=== PATIENT | male | born 1985 | race Two or more races ===

== ENCOUNTER 2018-02-23 16:15 | Inpatient (IN) ==
[2018-02-23] MEDS ORDERED: Bisacodyl 10 MG Supp RECTAL PRN (17:48)
[2018-02-23] MEDS ORDERED: Aluminum/Magnesium/Simethacone Susp 30 ML UDC PO PRN (17:48)
[2018-02-23] MEDS: Senna/Docusate Sodium 8.6/50 MG Tablet PO SCH (22:13)
[2018-02-24] MEDS: Senna/Docusate Sodium 8.6/50 MG Tablet PO SCH ×2 (08:42→20:27)
[2018-02-24 08:50] LABS: Anion Gap 6 meq/L (5-15); Blood Urea Nitrogen 14 mg/dL (7-18); Calcium 8.5 mg/dL (8.5-10.1); Carbon Dioxide 27.6 meq/L (21.0-32.0); Chloride 106 meq/L (98-107); Cholesterol 134 mg/dL (120-200); Glomerular Filtration Rate Greater Than 89 mL/min (>89); Glucose,Random 95 mg/dL (74-106); Potassium 3.7 meq/L (3.5-5.1); Sodium 140 meq/L (136-145)
[2018-02-24 08:53] LABS: Chol/HDL Ratio 3.58 Ratio; HDL Cholesterol 37.4 mg/dL (40.0-60.0); LDL Cholesterol,Calculated 74 mg/dL (0-99); Triglycerides 112 mg/dL (42-150)
[2018-02-24 12:33] LABS: Hemoglobin A1c 4.8 % (4.3-6.0)
--- NOTE | 2018-02-24 14:32 | P.HPPSY ---
Provisional Diagnosis Admission Date: February 23, 2018 17:08 [place] I.: Bipolar D/O, MRE mixed with psychotic features [place] II.: def Competence Certification of Person's Competence To Provide Express and Informed Consent I have personally examined Alessandro Wisdom, a person being served at [facility] on, February 24, 2018 1432. Express and informed consent means consent voluntarily given in writing, by a competent person, after sufficient explanation and disclosure of the subject matter involved to enable the person to make a knowing and willful decision without any element of force, fraud, deceit, duress, or other form of constraint or coercion. This person is 18 years of age or older, is not now known to be incompetent to consent to treatment with a guardian advocate, and does not have a health care surrogate or proxy currently making medical treatment decisions. I have found this person to be one of the following: [x] Competent to provide express and informed consent, as defined above, for voluntary admission to this facility and is competent to provide express and informed consent for treatment. He/she has the consistent capacity to make well reasoned, willful, and knowing decisions concerning his or her medical or mental health treatment. The person fully and consistently understands the purpose of the admission for examination/placement and is fully capable of personally exercising all rights assured under [place] [] Incompetent to provide express and informed consent to voluntary admission, and this is incompetent to provide express and informed consent to treatment. The person must be transferred to involuntary status and a petition for a guardian advocate filed with the Circuit Court. [] Refusing to provide express and informed consent to voluntary admission but is competent to provide express and informed consent for treatment. The person must be discharged or transferred to involuntary status. Form shall be completed within 24 hours of a person's arrival at the receiving facility and filed in the clinical record of each person: 1. Admitted on a voluntary basis 2. Permitted to provide express and informed consent to his/her own treatment 3. Allowed to transfer from involuntary to voluntary status 4. Prior to permitting a person to consent to his or her own treatment after having been previously found incompetent to consent to treatment. History of Present Illness Capacity: Has capacity Chief Complaint: "Depression and anxiety" History of Present Illness: Pt is a 32 YOHM who was admitted to [facility] under a BA due to depression and psychosis. He was transferred to [facility] from [facility] after he presented to ED c/o of depression and AH and fears that he would hurt others if voices continued. Pt was seen with RN and interview was conducted using Romansh site interpreter. Pt states that he has been feeling increasingly depressed and anxious for several days. He c/o of very poor sleep, racing thoughts, confusion, angry and AH. He states that he has a hx of previous psychiatric hospitalization x1 years ago. He states that he has been experiencing increasing AH that sound like multiple voices or static. He states that he does not want to harm himself or others, but he is afraid because he has been having severe anger and he is afraid he will hurt someone or destroy property. Pt reports that 2 months ago he went to ED c/o of anxiety and mood and was given prescriptions for klonopin and alprazolam. He has not had these medications in over a month. He reports that he has been smoking cigarettes and using cannabis on occasion. He states that he wants treatment and is willing to stay in hospital. Staff report that pt has been intrusive and impulsive. He was moved to a camera room due to hypersexual behavior (propositioning for threesomes) He reports hx of multiple episodes of depression and endorses past symptoms of hypomania. Past psychiatric Hx: one previous psychiatric hospitalization several years ago. Past dx of depression and anxiety. No previous suicide attempts. No hx of violent behavior. Past Psychiatric meds: clonazepam-2 months ago xanax-2 months ago SH: Pt reports that he has lived in [place] for 1 year and 7 months. Previously he was living in [place]. He reports that he has family local and in [place]. He has a 4th grade education. 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 He reports that he was living in a motel after breaking up with his child's mother and is now homeless. He reports that he does have family members living locally. No pending legal charges or history of incarceration. - Inpatient Certification I certify that the inpatient services were ordered in accordance with Medicare regulations governing the order. This includes certification that hospital inpatient services are reasonable and necessary and in the case of services not specified as inpatient-only under 42 CFR 419.22(n), that they are appropriately provided as inpatient services in accordance to with the 2-midnight benchmark under 43 CFR 412.3(e) I certify that inpatient psychiatric hospital services are medically necessary. Evaluation and treatment and/or diagnostic testing are expected to improve the patient's condition. The patient needs on a daily basis, active treatment furnished directly by or requiring the supervision of inpatient psychiatric facility personnel. Estimated Total Length of Stay (Days): 7 Plans for Post Hospital Care: Not yet determined Review of Systems Psychiatric: Reports abnormal sleep pattern, Reports anxiety, Reports depression , Reports hearing things others do not hear, Reports mood swings, Reports panic attacks, Reports thoughts of hurting/killing others PMFSH - Medical / Surgical Hx Neg / Unobtainable Medical Problems Denied: Yes Surgical History: No Previous Surgery - Medical History Medical History: Medical History (Last Updated 02/24/18 @ 14:51 by Alina Hannah MD) Anxiety Depression - Family History Family History: Family History (Last Updated 02/24/18 @ 14:51 by Alina Hannah MD) Other No pertinent family history - Social History I have reviewed the patient's Social History: Yes - Tobacco History Tobacco Use In Past 30 Days: Yes Smoking Status: Current some day smoker Tobacco Type: Cigarettes - Alcohol History How Often Do You Have a Drink Containing Alcohol: Unable to Obtain - Substance Use History Substance History: Active Abuse - Substance Use Type Marijuana Status: Active Route Used: Inhalation Reason for Use: Calm Down - Immunization History Tetanus Immunization: Unable to Assess Hx Influenza Vaccine This Season: Unable to Assess Quality Measures - Psychiatric History Psychological trauma history: none Violence risk to others in the last 6 months: none Violence risk to self in the last 6 months: none - Substance Abuse History Drug or alcohol use in the past 12 months: cannabis intermittenty - Patient Strengths Patient's strengths (minimum of 2): motivated for treatment, good physical health Medications and Allergies Active Medications: Active Medications Al Hydrox/Mg Hydrox/Simethicone (Mag-Al Plus Susp Liq) 30 ml PO Q6H PRN PRN Reason: DYSPEPSIA Al Hydroxide/Mg Hydroxide (Milk Of Magnesia Liq) 30 ml PO Q12H PRN PRN Reason: Mild Constipation Bisacodyl (Dulcolax Supp) 10 mg RECTAL DAILY PRN PRN Reason: SEVERE CONSITIPATION Lactulose (Lactulose Liq) 30 ml PO DAILY PRN PRN Reason: SEVERE CONSITIPATION Senna/Docusate Sodium (Merly-Colace) 1 tab PO BID GIGI Last Admin: 02/24/18 08:42 Dose: 1 tab Sennosides (Senokot) 17.2 mg PO Q12H PRN PRN Reason: Moderate Constipation Allergies Allergy/AdvReac Type Severity Reaction Status Date / Time No Known Allergies Allergy Unverified 02/23/18 17:13 Results - Labs CBC & Chem 7: 02/24/18 07:46 Labs: Laboratory Results - last 24 hr 02/24/18 02/24/18 07:46 07:46 Sodium 140 Potassium 3.7 Chloride 106 Carbon Dioxide 27.6 Anion Gap 6 BUN 14 Creatinine 0.77 Estimated GFR Greater than 89 Random Glucose 95 Hemoglobin A1c 4.8 Calcium 8.5 Triglycerides 112 Cholesterol 134 LDL Cholesterol, Calc 74 HDL Cholesterol 37.4 L Cholesterol/HDL Ratio 3.58 Exam Vital signs: Vital Signs 02/23/18 17:14 02/24/18 06:04 Temperature 97.3 F L 97.6 F Pulse Rate 77 69 Respiratory Rate 17 17 Blood Pressure 110/61 104/70 Pulse Oximetry 99 Intake & Output 02/23/18 02/24/18 02/24/18 18:59 06:59 18:59 Weight 86.5 kg Other: Weight On Admission 86.5 kg Narrative: Reviewed PE on chart. No acute distress Mental Status Examination Appearance: Appropriate Consciousness: Alert Orientation: x4 Motor Activity: Normal gait Speech: Rapid Language: Adequate Fund of Knowledge: Adequate Attention and Concentration: Other (fair) Memory: Unremarkable Mood: Sad, Anxious Affect: Labile Thought Process & Associations: Intact Thought Content: Hallucinations, Racing thoughts Hallucination Type: Auditory Delusion Type: None Suicidal Ideation: No Suicidal Plan: No Suicidal Intention: No Homicidal Ideation: Yes Homicidal Plan: No Homicidal Intention: No Insight: Fair Judgment: Impulsive Assessment and Plan - Assessment (1) Bipolar affective disorder, mixed, severe, with psychotic behavior Code(s): F31.64 - Bipolar disorder, current episode mixed, severe, with psychotic features Status: Acute (2) Cannabis abuse Code(s): F12.10 - Cannabis abuse, uncomplicated Status: Acute - Plan Plan: Estimated LOS: [] days Pt may sign voluntary admission. Will start Abilify trial to target mood and psychosis. Titrate to effective dose. Trazodone for sleep as needed. Justification for Continued Inpatient Stay: impairments in safety
[2018-02-24] MEDS ORDERED: traZODone 50 MG Tablet PO PRN (14:33)
[2018-02-24] MEDS: ARIPiprazole 5 MG Tablet PO SCH (20:27)
[2018-02-25] MEDS: Senna/Docusate Sodium 8.6/50 MG Tablet PO SCH ×2 (08:42→20:18)
--- NOTE | 2018-02-25 10:01 | P.TTN ---
- Patient Problems Problems: 1. Discharge planning 2. Medication compliance 3. Knowledge deficit 4. Lack of coping skills - Progress Toward Goals Provider Present: Dr. Swati Jean (New Pt) Psychiatric Counselors Present: Sundeep Mora Jr., [facility] ([facility] - Documentation Teaching Recipient: Patient
[2018-02-25] MEDS: buPROPion 100 MG ER 12 HR Tablet PO SCH (20:18)
[2018-02-25] MEDS: ARIPiprazole 5 MG Tablet PO SCH (20:18)
--- NOTE | 2018-02-25 23:05 | P.PNPSY ---
Subjective Chief Complaint: "Depression and anxiety" Remarks: Patient seen for follow, chart reviewed. Discussion nursing staff reported the patient isolative, guarded, reports feeling depressed and endorsing suicidal ideations. Patient was found sitting in hospital bed noted B, cooperative. Patient states he continues to feel depressed, continues to have some suicidal ideation stating that medications have helped his depression before primarily benzodiazepines. Patient reports sleeping well, adequate appetite or bowel movement. Patient states that he is feeling depressed, denying any suicide ideations at this time but worried about wanting to hurt others but "not as much ". Patient states having auditory hallucinations yesterday states that he is unable to understand the voices. Patient agrees to starting Wellbutrin 100 mg p.o. twice daily for depression. Review of Systems All other systems reviewed negative except as stated in HPI Mental Status Examination Appearance: Appropriate Consciousness: Alert Orientation: x4 Motor Activity: Normal gait Speech: Rapid Language: Adequate Fund of Knowledge: Adequate Attention and Concentration: Other (fair) Memory: Unremarkable Mood: Sad, Anxious Affect: Labile Thought Process & Associations: Intact Thought Content: Hallucinations, Preoccupations Hallucination Type: Auditory Delusion Type: None Suicidal Ideation: Yes Suicidal Plan: No Suicidal Intention: No Homicidal Ideation: Yes Homicidal Plan: No Homicidal Intention: No Insight: Fair Judgment: Impulsive Assessment and Plan - Assessment (1) Bipolar affective disorder, mixed, severe, with psychotic behavior Code(s): F31.64 - Bipolar disorder, current episode mixed, severe, with psychotic features Status: Acute (2) Cannabis abuse Code(s): F12.10 - Cannabis abuse, uncomplicated Status: Acute - Plan Plan: Patient this time reporting continued depressed mood along with continue suicide ideations as well as lessening thoughts of wanting to hurt others. We will start Wellbutrin 100 mg p.o. twice daily for depression, continue rest of medications. Continue to monitor mood and behavior. Discharge planning in progress. Justification for Continued Inpatient Stay: At risk of further decompensation at lower level of care.
[2018-02-26 06:18] VITALS: O2SAT 97
[2018-02-26] MEDS: buPROPion 100 MG ER 12 HR Tablet PO SCH ×2 (08:37→20:20)
[2018-02-26] MEDS: Senna/Docusate Sodium 8.6/50 MG Tablet PO SCH ×2 (08:37→20:20)
[2018-02-26 18:35] VITALS: BP 121/70; PULSE 72; RESP 17; TEMP 97.9
[2018-02-26] MEDS: ARIPiprazole 5 MG Tablet PO SCH (20:20)
--- NOTE | 2018-02-27 00:21 | P.DSPSY ---
Psychiatry Discharge Summary Inpatient Psychiatric care?: Yes Advance Directives: No Mental Health Advance Directive: No Health Care Proxy: No - Admission Admission Date: February 23, 2018 17:08 - Admission Diagnosis (1) Bipolar affective disorder, mixed, severe, with psychotic behavior Code(s): F31.64 - Bipolar disorder, current episode mixed, severe, with psychotic features Brief History: Pt is a 32 YOHM who was admitted to [facility] under a BA due to depression and psychosis. He was transferred to [facility] from [facility] after he presented to ED c/o of depression and AH and fears that he would hurt others if voices continued. Pt was seen with RN and interview was conducted using Malaysian enrollment clerk. Pt states that he has been feeling increasingly depressed and anxious for several days. He c/o of very poor sleep, racing thoughts, confusion, angry and AH. He states that he has a hx of previous psychiatric hospitalization x1 years ago. He states that he has been experiencing increasing AH that sound like multiple voices or static. He states that he does not want to harm himself or others, but he is afraid because he has been having severe anger and he is afraid he will hurt someone or destroy property. Pt reports that 2 months ago he went to ED c/o of anxiety and mood and was given prescriptions for klonopin and alprazolam. He has not had these medications in over a month. He reports that he has been smoking cigarettes and using cannabis on occasion. He states that he wants treatment and is willing to stay in hospital. Staff report that pt has been intrusive and impulsive. He was moved to a camera room due to hypersexual behavior (propositioning for threesomes) He reports hx of multiple episodes of depression and endorses past symptoms of hypomania. Past psychiatric Hx: one previous psychiatric hospitalization several years ago. Past dx of depression and anxiety. No previous suicide attempts. No hx of violent behavior. Past Psychiatric meds: clonazepam-2 months ago xanax-2 months ago SH: Pt reports that he has lived in [place] for 1 year and 7 months. Previously he was living in [place]. He reports that he has family local and in [place]. He has a 4th grade education. 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 He reports that he was living in a motel after breaking up with his child's mother and is now homeless. He reports that he does have family members living locally. No pending legal charges or history of incarceration. Tobacco Use In Past 30 Days: Yes How Often Do You Have a Drink Containing Alcohol: Unable to Obtain Hospital Course: Pt is a 32 YOHM who was admitted to [facility] under a BA due to depression and psychosis. He was transferred to [facility] from [facility] after he presented to ED c/o of depression and AH and fears that he would hurt others if voices continued which patient was admitted to the inpatient psychiatry unit for further evaluation and mangement. Patient was started on medication regimen to target mood and psychotic symptoms which he tolerated well with no notable adverse drug reactions. He was observed by staff not to have had any behavioral disturbances, denied any suicidal ideation and denied any homicidal ideations. Patient was able to reach and maintain stable mood with no longer endorsing perceptual disturbances, no longer endorsing thoughts or feelings of hurting others and was noted to participate with staff adequately. Patient was noted to participate in self-care, engaged with staff and maintaining adequate hygiene. Patient reported feeling good, future oriented and motivated to engage in continued outpatient treatment and return back to [place] where he was more familiar with the area. Treatment team was able to provide to the patient referrals for outpatient follow-up and provide transportation arrangements for patient to be transported to [place]. Upon discharge patient stated feeling "good" reported feeling well with treatment, agreed to continue treatment. Patient from a mental health perspective no longer met criteria for continued inpatient level of care. Patient denied any SI, HI, perceptual disturbances or delusions. Weighing the acute, chronic, and protective factors and based on the available evidence, I marine steward to a reasonable degree of medical certainty that the patient is at low imminent risk of harm to self or others for mental illness as defined under the [place] act and her level of function is adequate as observed on the unit for planned level of outpatient care. Patient was counseled regarding warning signs for need to return to the psychiatric emergency room as part of the general safety plan. Patient advised to call 911 or go to nearest ED in case of emergency. Patient agrees with plan. - Discharge Discharge Date: 02/27/18 - Discharge Diagnosis (1) Bipolar affective disorder, mixed, severe, with psychotic behavior Code(s): F31.64 - Bipolar disorder, current episode mixed, severe, with psychotic features Status: Acute Discharge Disposition: Home - Discharge Instructions Discharge Diet: Heart Healthy Diet Activities You Can Perform: Regular- No Restrictions - Discharge Time > 30 minutes Mental Status Examination Appearance: Appropriate Consciousness: Alert Orientation: x4 Motor Activity: Normal gait Speech: Unremarkable Language: Adequate Fund of Knowledge: Adequate Attention and Concentration: Adequate, Other (fair) Memory: Unremarkable Mood: Appropriate Affect: Appropriate Thought Process & Associations: Intact Thought Content: Appropriate Hallucination Type: None Delusion Type: None Suicidal Ideation: No Suicidal Plan: No Suicidal Intention: No Homicidal Ideation: No Homicidal Plan: No Homicidal Intention: No Insight: Fair Judgment: Impulsive Discharge/Advance Care Plan - Results Vital Signs: Last Vital Signs Temp 97.9 F 02/26/18 18:34 Pulse 72 02/26/18 18:34 Resp 17 02/26/18 18:34 BP 121/70 02/26/18 18:34 Pulse Ox 97 02/26/18 18:34 Lab Results: Laboratory Results Hemoglobin A1c 4.8 % (4.3-6.0) 02/24/18 07:46 Triglycerides 112 mg/dL (42-150) 02/24/18 07:46 Cholesterol 134 mg/dL (120-200) 02/24/18 07:46 LDL Cholesterol, Calc 74 mg/dL (0-99) 02/24/18 07:46 HDL Cholesterol 37.4 mg/dL (40.0-60.0) L 02/24/18 07:46 Summary of Procedures: none Pending Results: None - Medications Number of antipsychotic medications at discharge: 1 - Discharge Care Plan Goals to Promote Your Health: * To prevent worsening of your condition and complications * To maintain your health at the optimal level Directions to Meet Your Goals: Take your medications as prescribed Follow your dietary instruction Follow activity as directed Keep your appointments as scheduled Take your immunizations and boosters as scheduled If your symptoms worsen call your PCP, if no PCP go to Urgent Care Center or Emergency Room For 25/12 questions related to your inpatient stay or results of tests pending at discharge, please contact Dr. Conrad Jean MD at Smoking is Dangerous to Your Health. Avoid second hand smoking
== END 2018-02-27 05:00 | disposition home or self-care (01) ==
LOC: H270 17:08
PROVIDERS: ADMIT Student in an Organized Health Care Education/Training Program; ATTEND Student in an Organized Health Care Education/Training Program